=== PATIENT | female | born 1960 | race Caucasian/White ===

== ENCOUNTER → 2016-07-03 | Outpatient (CLI) | payer OTHER ==
[~2016-07-03] MED LIST: DOCUSATE SODIU100 MG PO; OXYCODONE-ACET1 EACH PO; SYNTHROID125 PO; XARELTO10 MG PO
--- NOTE | ~2016-07-03 | EKG ---
PATIENT: TAYLOR ARRIETA UNIT #: [id number] Ventricular Rate: 67 BPM Atrial Rate: 67 BPM P-R Interval: 144 ms QRS Duration: 90 ms Q-T Interval: 432 ms QTC Calculation(Bezet): 456 ms P [place]: 23 degrees Calculated R [place]: 6 degrees Calculated T [place]: 6 degrees Diagnosis Line: Normal sinus rhythm Diagnosis Line: Normal ECG Diagnosis Line: Diagnosis Line: Confirmed by EMMA LARIOS MD ([id number]) on 07/03/2016 Diagnosis Line: 11:38:35 PM INTERPRETING MD: RIC MATT
[2016-07-03 14:38] LABS: CREATININE SERUM 0.7 mg/dL (0.6-1.4); GLOM FILT RATE Estimated 97.5 mL/min (>60)
== END | disposition home or self-care (01) ==
LOC: CAMB 12:17
PROVIDERS: Orthopaedic Surgery
DX: Z01.818 Encounter for other preprocedural examination (principal); M19.071 Primary osteoarthritis, right ankle and foot
CPT/HCPCS: 36415; 80048; 93005

== ENCOUNTER 2016-07-17 05:21 | Inpatient (IN) | payer OTHER ==
--- NOTE | ~2016-07-17 | OR ---
Unit #: [id number] #: [id number] Patient: TAYLOR ARRIETA [id number] [address] [place], [place] [address] [id number] MR#: [id number] NAME: TAYLOR ARRIETA ROOM: [facility] Date of Procedure: 07/17/2016 Admission Date: 07/17/2016 Surgeon: Carlos Bragg M.D. : 1960 Attending Physician: Carlos Bragg M.D. Primary Care Physician: Primary Care Physician No OPERATIVE REPORT PREOPERATIVE DIAGNOSIS Right ankle degenerative arthritis. POSTOPERATIVE DIAGNOSIS Right ankle degenerative arthritis. PROCEDURE PERFORMED Right ankle fusion (26801). ASSISTANTS Jt and Nuria. ANESTHESIA General and popliteal saphenous block. INDICATIONS FOR SURGERY The patient is a 56-year-old female with posttraumatic right ankle arthritis. She has failed to respond to conservative care. She has dcoq-ld-anat opposition with weightbearing x-rays. She is therefore admitted for ankle fusion. She weighs in excess of 300 pounds, and is not a candidate for ankle replacement. DESCRIPTION OF PROCEDURE The patient underwent right popliteal saphenous block. She was taken to the operating room and placed in supine position. General anesthetic was induced. The right ankle was prepped and draped in usual sterile fashion. The leg was exsanguinated and the thigh tourniquet inflated to 300 mmHg. A time-out procedure was performed prior to prepping, identifying the right leg as the correct operative extremity, and the IV antibiotic protocol was followed. An 8 cm anterolateral longitudinal incision was made of the ankle joint. Subcutaneous tissue was divided and the superficial peroneal nerve was identified and preserved. The extensor retinaculum was opened and the extensor tendons were retracted medially. The joint was exposed with a lamina filtering machine tender helper. The power osteotome, curved curettes, and rongeurs were utilized to remove the articular cartilage from both sides of the ankle joint. The underlying subchondral bone was feathered with the power osteotome. Augment platelet-derived growth factor was then placed in the joint. The joint was then positioned appropriately and fixated with two OrthoHelix 7.0 mm diameter cannulated screws placed from medial proximal to distal lateral. Excellent fixation was achieved. The tourniquet was Unit #: [id number] #: [id number] Patient: TAYLOR ARRIETA. Bleeding was controlled with electrocautery. The extensor retinaculum was closed with 2-0 Vicryl. Subcutaneous tissue was closed with 3-0 Vicryl. Skin was closed with 3-0 nylon horizontal mattress sutures. Xeroform gauze, dressing, sponges, Webril, and a posterior fiberglass splint were applied. The patient was then transported to the recovery room in stable condition. ESTIMATED BLOOD LOSS Minimal. COMPLICATIONS None. SPECIMENS None. TOURNIQUET TIME 45 minutes. Dictated by.Rohan Mills/justin TD: 07/17/2016 23:52 JOB #: [id number] OPERATIVE REPORT Page 1 of 1 X Ninfa Bragg MD X PROCEDURE OPERATIVE NOTE
--- NOTE | ~2016-07-17 | BMI ---
[facility] Nutrition Therapy DATE: 07/18/16 Patient: TAYLOR ARRIETA Physician: MAURA Address: [facility] [address] [place] [address] Room/Bed: [address] [place] [address], Zip: [place] [address] Admit Date: 07/17/16 Date of : [birth year] Height: 5 8 Weight: 334 151.5 HIGH BMI NOTE: DX: 56 Y.O. FEMALE ADMITTED FOR (R) ANKLE DJD ANTHROPOMETRICS: 5'8", WT: 334# (152 KG), BMI: 50.8 DIET: REGULAR INTERVENTION: 1. REGULAR DIET RECOMMENDATIONS: 1. RECOMMEND TO CHANGE CURRENT DIET ORDER TO CC+HH TO PROMOTE GRADUAL WEIGHT LOSS TOWARDS HEALTHY BMI (19.0-25.0) OR +/-10%IBW RD WILL F/U PER PROTOCOL Respectfully, EMA VILLAVICENCIO MS, RD, LD Food and Nutritional Services [facility] cc: client file
--- NOTE | ~2016-07-17 | HP ---
Unit #: [id number] #: [id number] Patient: TAYLOR ARRIETA [id number] [address] [address] [id number] MR#: [id number] NAME: TAYLOR ARRIETA ROOM: Age: Sex: F Admission Date: 07/17/2016 : 1960 Attending Physician: Carlos Bragg M.D. Primary Care Physician: Primary Care Physician No HISTORY AND PHYSICAL DATE OF ANTICIPATED ADMISSION/PROCEDURE July 17, 2016 CHIEF COMPLAINT Right ankle pain. HISTORY OF PRESENT ILLNESS The patient is a 56-year-old female who sustained a right bimalleolar ankle fracture in 2007. She underwent open reduction and internal fixation with subsequent hardware removal. The patient now has ongoing worsening pain which has been unresponsive to conservative care. The patient has pain with walking and standing. She has had injections of steroids and has been started on an arthritis medication. Radiographs demonstrate symmetrical joint space loss across the tibiotalar joint with eight degrees of ankle equinus. The patient is obese and will therefore undergo ankle fusion. She is not a candidate for ankle replacement due to her obesity. PAST MEDICAL HISTORY 1. Obesity. 2. Hypothyroidism. HOME MEDICATIONS 1. Chromium tabs. 2. Iodine. 3. Levothyroxine. 4. Meloxicam. 5. Phentermine. 6. Vitamin D. ALLERGIES COMPAZINE. PAST SURGICAL HISTORY Open reduction and internal fixation right ankle in 2007. SOCIAL HISTORY The patient is a nonsmoker. She drinks alcohol rarely. She denies IV drug abuse. FAMILY HISTORY Noncontributory. PHYSICAL EXAMINATION Unit #: [id number] #: [id number] Patient: TAYLOR ARRIETA VITAL SIGNS: Height 5 feet 8 and weight 330 pounds with BMI of 50.18. EXTREMITIES: Examination of the right ankle shows swelling of the ankle. She has an equinus contracture of about 10 degrees. The heel is neutral. Ankle dorsiflexion is -5 degrees and plantar flexion 30 degrees. Subtalar motion is very limited. First MTP joint motion is normal. The patient is maximally tender over the anteromedial tibiotalar joint and sinus tarsi. She has a well-healed incision over the anteromedial ankle and over the lateral malleolus. DIAGNOSTIC STUDIES IMAGING: Standing x-rays of the right ankle show symmetrical joint space loss with large osteophytes anteriorly. ADMITTING DIAGNOSES 1. Posttraumatic right ankle arthritis. 2. Morbid obesity. PLAN The patient is admitted for right ankle fusion with use of Augment platelet-derived growth factor. This procedure was described along with the risks of bleeding, infection, nerve damage, need for further surgery in the future, prolonged recovery time, deep venous thrombosis, pulmonary embolism, anesthetic complications, nonunion, and malunion. The patient understands the above risks and agrees to proceed. She understands she will have to be nonweightbearing three months postoperatively. Dictated by Rohan Davalos/una TD: 07/16/2016 20:47 JOB #: [id number] HISTORY AND PHYSICAL Page 1 of 1 X Ninfa Bragg MD HISTORY AND PHYSICAL
[~2016-07-17 05:21] MED LIST changes: -DOCUSATE SODIU100 MG PO; -OXYCODONE-ACET1 EACH PO; -XARELTO10 MG PO
[2016-07-18] MEDS ORDERED: XARELTO10 MG PO (11:55)
[2016-07-18] MEDS ORDERED: DOCUSATE SODIU100 MG PO (11:56)
[2016-07-18] MEDS ORDERED: OXYCODONE-ACET1 EACH PO (11:57)
== END 2016-07-18 15:15 | disposition home or self-care (01) | DRG 493 ==
LOC: CSUR 05:21 → CPACUOF 09:30 → C4B 10:58
PROVIDERS: Orthopaedic Surgery
PROC: 0SGF04Z Fusion of Right Ankle Joint with Internal Fixation Device, Open Approach (ICD-10-PCS; principal; 2016-07-17 07:30)
DX: M19.171 Post-traumatic osteoarthritis, right ankle and foot (principal); Z68.43 Body mass index [BMI] 50.0-59.9, adult; E66.01 Morbid (severe) obesity due to excess calories; E03.9 Hypothyroidism, unspecified
CPT/HCPCS: 84703; 94760; 97116; 97161; 97530; C1713; J0330; J0690; J0735; J1170; J2250; J2270; J2405; J2710; J2795; J3010